=== PATIENT | male | born 1935 | race Caucasian/White ===

== ENCOUNTER 2018-01-08 08:52 | Day surgery (SDC) | payer OTHER ==
[~2018-01-08 08:52] MED LIST: ACETAMINOPHEN 325 MG TAB PO PRN; ASPIRIN EC 325 MG TAB PO ONE; DIAZEPAM 5 MG TAB PO ONE; FAMOTIDINE 20 MG TAB PO ONE; NITROGLYCERIN 0.4 MG BTL SL PRN; NS 1,000 ML IV SCH; TEMAZEPAM 15 MG CAP PO PRN; diphenhydrAMINE 25 MG CAP PO ONE
[2018-01-08] MEDS ORDERED: diphenhydrAMINE 25 MG CAP PO ONE (09:29)
[2018-01-08] MEDS ORDERED: FAMOTIDINE 20 MG TAB ONE (09:30)
[2018-01-08] MEDS ORDERED: DIAZEPAM 5 MG TAB ONE (09:30)
[2018-01-08] MEDS ORDERED: ASPIRIN EC 325 MG TAB PO ONE (09:30)
[2018-01-08 09:35] LABS: PLATELET COUNT 208 10^3/uL (150-400)
[2018-01-08 09:43] LABS: INR 0.94 (0.83-1.16); PROTIME(PATIENT) 12.8 SEC (12.0-15.0)
[2018-01-08] MEDS ORDERED: LIDOCAINE 1% 300 MG/30 ML SDV ONE (10:49)
[2018-01-08] MEDS ORDERED: fentaNYL 100 MCG/2 ML INJ ONE (10:50)
[2018-01-08] MEDS ORDERED: IOPAMIDOL (ISOVUE-370) 150 ML BTL IV ONE (10:50)
[2018-01-08] MEDS ORDERED: MIDAZOLAM 2 MG/2 ML VIAL ONE (10:50)
--- NOTE | 2018-01-08 10:53 | PDHPUP ---
History & Physical Update H&P update statement: This history and physical update is based on an assessment of the patient which was completed after admission or registration (within 24 hours), but prior to the surgery/procedure. H&P update: H&P reviewed & patient examined, no change in patient's condition since H&P completed
--- NOTE | 2018-01-08 10:54 | PDPROPOC ---
Sedation Plan of Care Sedation Plan of Care: vital signs stable, mental status noted, patient educated of risks, benefits, alternatives, patient can tolerate sedation ASA Classification: ASA 2 Planned drugs: fentanyl, midazolam Mallampati Score: Class 2 Mallampati Reference Image: Patient passed 3-3-2 rule?: Yes
--- NOTE | 2018-01-08 12:34 | CPEKG ---
Test Reason : OPEN Blood Pressure : / mmHG Vent. Rate : 068 BPM Atrial Rate : 066 BPM P-R Int : 173 ms QRS Dur : 113 ms QT Int : 435 ms P-R-T Axes : 065 047 040 degrees QTc Int : 463 ms Sinus rhythm Multiple ventricular premature complexes Low voltage, extremity leads More upright T waves in the precordial leads compared to December 12, 2009 Confirmed by Guilherme Arciniega ([id number]) on 01/08/2018 12:33:34 PM Referred By: Confirmed By:Guilherme Arciniega
[2018-01-08] MEDS ORDERED: ATROPINE SULFATE 1 MG/10 ML SYR IVP PRN (14:51)
[2018-01-08] MEDS ORDERED: ONDANSETRON 4 MG/2 ML VIAL IVP PRN (14:51)
[2018-01-08] MEDS ORDERED: HYDROCODONE/APAP 5/325 TAB PO PRN (14:51)
--- NOTE | 2018-01-08 16:15 | PDDXCAT ---
Diagnostic Cath Note - . 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 LAD: Diffuse moderate disease in the proximal to mid-LAD; focal 70-80% stenosis in the mid-LAD. Bifurcated 1st diagonal with high-grade ostial disease. LCX: Diffuse mild to moderate disease of the proximal to mid-circumflex. Principal OM with 50-60% disease involving a trifurcation. RCA: Diffuse moderate to severe disease from the proximal segment all the way distally to the posterolateral system. EDP: 15 mmHg LVEF: 50% Wall motion: No regional variation in contractility. - Findings-Right Heart Catheterization RA: 10 mmHg RV: 46/8 mmHg PA: 48/11/27 mmHg O2 sat 80.0% PAOP: 14 mmHg AO: 134/66/93 mmHg O2 sat 97.3% CO: 7.3 L/min CI: 3.14 L/min/sq mtr Complications: None Estimated blood loss: <50ml Closure method: Angioseal Assessment: 1) CAD as described above. 2) Borderline LV systolic function. 3) Mild pulmonary hypertension. Plan: He will be discussed at our weekly case conference. He does not have chest pain. Does his FROST represent an anginal equivalent? Does his recent nuclear stress test represent balanced ischemia? Does he warrant revascularization? If so, by what method?
[2018-01-09] MEDS ORDERED: ATORVASTATIN CALCIUM 40 MG TAB PO SCH (09:00)
== END 2018-01-08 17:12 | disposition home or self-care (01) ==
LOC: FCATH 08:52
PROVIDERS: ATTEND Internal Medicine Interventional Cardiology
DX: I25.10 Atherosclerotic heart disease of native coronary artery without angina pectoris (principal); I27.20 Pulmonary hypertension, unspecified; R94.39 Abnormal result of other cardiovascular function study; R06.02 Shortness of breath; I49.3 Ventricular premature depolarization; E11.9 Type 2 diabetes mellitus without complications; G47.33 Obstructive sleep apnea (adult) (pediatric); E78.5 Hyperlipidemia, unspecified; Z79.84 Long term (current) use of oral hypoglycemic drugs; Z86.73 Personal history of transient ischemic attack (TIA), and cerebral infarction without residual deficits; Z87.891 Personal history of nicotine dependence; Z87.442 Personal history of urinary calculi; Z82.49 Family history of ischemic heart disease and other diseases of the circulatory system; Z96.651 Presence of right artificial knee joint; Z66 Do not resuscitate
CPT/HCPCS: C1760; J1644; J2250; J3010; Q9967

== ENCOUNTER → 2018-01-24 | Outpatient (CLI) | payer OTHER | LOC: FIMAGING 07:22 | PROVIDERS: ATTEND Thoracic Surgery (Cardiothoracic Vascular Surgery) | DX: I25.10 Atherosclerotic heart disease of native coronary artery without angina pectoris (principal) ==

== ENCOUNTER 2018-01-25 09:48 | Inpatient (IN) | payer OTHER ==
[~2018-01-25 09:48] MED LIST changes: -ACETAMINOPHEN 325 MG TAB PO PRN; +AMINOCAPROIC ACID 5 GM/20 ML VIAL IV ONE; -ASPIRIN EC 325 MG TAB PO ONE; +CARDIOPLEGIC SOLUTION 1,052.8 ML PF ONE; -DIAZEPAM 5 MG TAB PO ONE; +DOBUTamine 500 MG in D5W 250 ML IV ONE; +DOBUTamine/DEXTROSE 250 ML IV ONE; -FAMOTIDINE 20 MG TAB PO ONE; +INSULIN REGULAR HUMAN 100 UNIT in NS 100 ML IV ONE; +MANNITOL 25% 12.5 GM/50 ML VIAL IVP ONE; -NITROGLYCERIN 0.4 MG BTL SL PRN; +NOREPINEPHRINE BITARTRATE 16 MG in NS 250 ML IV ONE; -NS 1,000 ML IV SCH; +PAPAVERINE HCL 60 MG in NS 100 ML IV ONE; +PHENYLEPHRINE HCL 50 MG in NS 250 ML IV ONE; -TEMAZEPAM 15 MG CAP PO PRN; +VERAPAMIL 5 MG, NITROGLYCERIN 2.5 MG, HEPARIN 500 UNIT, SODIUM BICARBONATE 0.2 MEQ in L... MISC ONE; -diphenhydrAMINE 25 MG CAP PO ONE
[2018-01-25] MEDS ORDERED: CALCIUM CHLORIDE 1 GM/10 ML INJ ONE ×3 (09:50→09:54)
[2018-01-25] MEDS ORDERED: NA BICARBONATE 50 MEQ/50 ML VIAL ONE (09:52)
[2018-01-25] MEDS ORDERED: PROTAMINE SULFATE 50 MG/5 ML VIAL IVP ONE (09:52)
[2018-01-25] MEDS ORDERED: HEPARIN 10,000 UNIT/10 ML MDV (1,000 UNIT/ML) ONE ×2 (09:52→09:54)
[2018-01-25] MEDS ORDERED: DOPamine/DEXTROSE 400 MG/250 ML BAG IV ONE (09:52)
[2018-01-25] MEDS ORDERED: MILRINONE/DEXTROSE/100 ML BAG IV ONE (09:52)
[2018-01-25] MEDS ORDERED: ALBUMIN 5% 250 ML BOTTLE IV ONE ×3 (09:53→23:44)
[2018-01-25] MEDS ORDERED: ceFAZolin 1 GM VIAL ONE (09:53)
[2018-01-25] MEDS ORDERED: AMIODARONE HCL 150 MG/3 ML VIAL ONE ×2 (09:53→09:54)
[2018-01-25] MEDS ORDERED: SODIUM BICARBONATE 50 MEQ/50 ML SYR ONE (09:53)
[2018-01-25] MEDS ORDERED: niCARdipine/NACL/200 ML BAG IV ONE (09:53)
[2018-01-25] MEDS ORDERED: ADENOSINE 6 MG/2 ML VIAL ONE (09:53)
[2018-01-25] MEDS ORDERED: NITROGLYCERIN/D5W 50 MG/250 ML BOTTLE IV ONE (09:53)
[2018-01-25] MEDS ORDERED: CITRATE DEXTROSE SOLN 500 ML BAG ONE (09:54)
[2018-01-25] MEDS ORDERED: MAGNESIUM SULFATE 1 GM/2 ML VIAL ONE (09:54)
[2018-01-25] MEDS ORDERED: LIDOCAINE 2% 100 MG/5 ML SYR ONE (09:54)
[2018-01-25] MEDS ORDERED: methylPREDNISolone SOD SUCC 1 GM/8 ML VIAL ONE (09:54)
[2018-01-25] MEDS ORDERED: NS 1,000 ML IV ONE (10:16)
[2018-01-25] MEDS ORDERED: CITRATE DEXTROSE SOLN 500 ML BAG MISC ONE (10:16)
[2018-01-25] MEDS ORDERED: LIDOCAINE 1% 2 ML INJ ID PRN (10:16)
[2018-01-25] MEDS ORDERED: CHLORHEXIDINE GLUC HIBICLENS 118 ML BTL TP SCH (10:16)
[2018-01-25] MEDS ORDERED: MUPIROCIN 2% 22 GM OINT NS ONE (10:16)
[2018-01-25] MEDS ORDERED: ceFAZolin 2 GM/DEXTROSE 100 ML IV ONE (10:16)
[2018-01-25] MEDS ORDERED: LR 1,000 ML IV ONE (10:16)
--- NOTE | 2018-01-25 10:48 | PDHPUP ---
History & Physical Update H&P update statement: This history and physical update is based on an assessment of the patient which was completed after admission or registration (within 24 hours), but prior to the surgery/procedure. H&P update: no change in patient's condition since H&P completed
[2018-01-25] MEDS ORDERED: MIDAZOLAM 2 MG/2 ML VIAL IVP ONE (11:25)
--- NOTE | 2018-01-25 11:25 | PDANEPAE ---
ANE History of Present Illness 82 yo cabg ANE Past Medical History - Cardiovascular History Hx Hypertension: Yes Hx Arrhythmias: No Hx Chest Pain: Yes Hx Coronary Artery / Peripheral Vascular Disease: Yes Hx CHF / Valvular Disease: No Hx Palpitations: No Cardiovascular History Comment: CAD. hx of sob. hx of cp. hypercholesterolemia. pvc's. followed by [facility] - Pulmonary History Hx COPD: No Hx Asthma/Reactive Airway Disease: No Hx Recent Upper Respiratory Infection: No Hx Oxygen in Use at Home: No Hx Sleep Apnea: No Sleep Apnea Screening Result - Last Documented: Positive Pulmonary History Comment: justina positive uses cpap - Neurologic History Hx Cerebrovascular Accident: Yes Hx Seizures: No Hx Dementia: No Neurologic History Comment: TIA- no residual effects 2016 - Endocrine History Hx Diabetes: Yes Endocrine History Comment: type 2 - Renal History Hx Renal Disorders: No - Liver History Hx Hepatic Disorders: No - Neurological & Psychiatric Hx Hx Neurological and Psychiatric Disorders: No - Cancer History Hx Cancer: Yes Cancer History Comment: basal cell. 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 hole in right ear. dry skin. oral appliance for TMJ - Chronic Pain History Chronic Pain: No - Surgical History Prior Surgeries: cath 01/08/18. right knee replacement. left hip replacement. ureterscopy with [facility] 12/13/09. 17 yrs ago numerous right ear surgeries ANE Review of Systems Review of Systems: - Exercise capacity METS (RN): 3 METS ANE Patient History - Allergies Allergies/Adverse Reactions: No Known Allergies Allergy (Verified 01/22/18 14:53) - Home Medications Home Medications: Carvedilol [Coreg (*)] 6.25 mg PO BIDMEAL 01/07/18 [Last Taken 01/24/18] Clopidogrel Bisulfate [Plavix (*)] 75 mg PO DAILY 01/07/18 [Last Taken 01/20/18] Gabapentin [Neurontin 300 MG (*)] 300 mg PO HS 01/07/18 [Last Taken 01/24/18] metFORMIN HCL [Glucophage 500 mg (*)] 500 mg PO BIDMEAL 01/07/18 [Last Taken 12/27] Herbals/Supplements -Info Only 1 ea PO DAILY 01/21/18 [Last Taken Unknown] Magnesium Oxide [Magnesium Oxide 400 mg (*)] 400 mg PO DAILY 01/21/18 [Last Taken 01/22/18] Multivitamins [Multivitamin (*)] 1 each PO DAILY 01/21/18 [Last Taken 01/22/18] - NPO status NPO Status: no food or drink >8 hours NPO Since - Liquids (Date): 01/24/18 NPO Since - Liquids (Time): 21:00 NPO Since - Solids (Date): 01/24/18 NPO Since - Solids (Time): 21:00 - Anes Hx Anes Hx: no prior problems - Smoking Hx Smoking Status: Former smoker - Family Anes Hx Family Hx Anesthesia Complications: none ANE Labs/Vital Signs - Vital Signs Blood Pressure: 165/77 Heart Rate: 63 Respiratory Rate: 20 O2 Sat (%): 95 Height: 6 ft 3 in Weight: 102.965 kg ANE Physical Exam - Airway Neck exam: FROM Mallampati Score: Class 2 Mouth exam: normal dental/mouth exam - Pulmonary Pulmonary: no respiratory distress - Cardiovascular Cardiovascular: regular rate and rhythym - ASA Status ASA Status: IV ANE Anesthesia Plan Anesthesia Plan: general endotracheal anesthesia Lines/Monitors: arterial line, central line, YAN
[2018-01-25] MEDS ORDERED: DEXMEDETOMIDINE HCL 400 MCG in NS 100 ML IV SCH (11:30)
[2018-01-25] MEDS ORDERED: MIDAZOLAM 2 MG/2 ML VIAL ONE (11:35)
[2018-01-25] MEDS ORDERED: REMIFENTANIL HCL 1 MG VIAL ONE (11:37)
[2018-01-25] MEDS ORDERED: fentaNYL 100 MCG/2 ML INJ ONE (11:37)
[2018-01-25] MEDS ORDERED: PROPOFOL/EMULSION 500 MG/50 ML BOTTLE IV ONE ×2 (11:38→14:20)
[2018-01-25] MEDS ORDERED: ROCURONIUM 100 MG/10 ML VIAL ONE (11:39)
[2018-01-25] MEDS ORDERED: HYDROmorphONE/DILAUDID 2 MG/ML INJ ONE (14:09)
--- NOTE | 2018-01-25 16:23 | POSTOPPROG ---
Post Op Note Date of Operation: 01/25/18 Surgeon: Jefry Magana Assistant: Guilherme Pan PAC Anesthesia: GET(General Endotracheal) Pre-op Diagnosis: CAD Post-op Diagnosis: same Procedure: CABGx3 (ABDUL-LAD, SVG-OM2, SVG-D1) Findings: coronary artery disease Inf/Abcess present in the surg proc area at time of surgery?: No Depth: Organ Space EBL: 100-500 Complications: none Drains: Other (Chest tubesx3 (1 right, 1 left, 1 mediastinal)) Specimen(s): none
[2018-01-25] MEDS ORDERED: MAGNESIUM HYDROXIDE 30 ML UDCUP PO PRN (16:28)
[2018-01-25] MEDS ORDERED: BISACODYL 10 MG SUPP PR PRN (16:28)
[2018-01-25] MEDS ORDERED: ONDANSETRON 4 MG/2 ML VIAL IVP PRN (16:28)
[2018-01-25] MEDS ORDERED: METOCLOPRAMIDE 10 MG/2 ML VIAL IVP PRN (16:28)
[2018-01-25] MEDS ORDERED: MEPERIDINE 25 MG/0.5 ML AMP IVP PRN (16:28)
[2018-01-25] MEDS ORDERED: CEPACOL LOZENGE PO PRN (16:28)
[2018-01-25] MEDS ORDERED: D50W 25 GM/50 ML SYR IVP PRN (16:28)
[2018-01-25] MEDS ORDERED: POTASSIUM Cl (KCl) 50 ML IV PRN (16:28)
[2018-01-25] MEDS ORDERED: ONDANSETRON DISINTEGRATING 4 MG TAB PO PRN (16:28)
[2018-01-25] MEDS ORDERED: POLYETHYLENE GLYCOL 3350 17 GM PKT PO PRN (16:28)
[2018-01-25] MEDS ORDERED: ACETAMINOPHEN 650 MG SUPP PR PRN (16:28)
[2018-01-25] MEDS ORDERED: PANTOPRAZOLE SODIUM 40 MG VIAL IVP ONE (16:28)
[2018-01-25] MEDS ORDERED: SODIUM CL NASAL 45 ML BTL EACHNARE PRN (16:28)
[2018-01-25] MEDS ORDERED: LACTULOSE 20 GM/30 ML UDCUP PO PRN (16:28)
[2018-01-25] MEDS ORDERED: ACETAMINOPHEN 325 MG TAB PO PRN (16:28)
[2018-01-25] MEDS ORDERED: niCARdipine/NACL 200 ML IV SCH (16:30)
[2018-01-25] MEDS ORDERED: INSULIN REGULAR HUMAN 100 UNIT in NS 100 ML IV SCH (16:30)
[2018-01-25] MEDS ORDERED: NS 1,000 ML IV SCH (16:30)
[2018-01-25 16:32] LABS: PLATELET COUNT 116 10^3/uL (150-400)
[2018-01-25 16:34] LABS: INR 1.4 (0.83-1.16); PROTIME(PATIENT) 17.3 SEC (12.0-15.0)
--- NOTE | 2018-01-25 16:36 | GOP ---
DATE OF OPERATION: 01/25/2018 SURGEON: Jefry Magana MD IMMIGRATION ATTORNEY: Guilherme Pan P.A.-C. PREOPERATIVE DIAGNOSIS: Coronary artery disease with unstable angina. POSTOPERATIVE DIAGNOSIS: Coronary artery disease with unstable angina. PROCEDURE PERFORMED: 1. Triple coronary artery bypass grafting. Summary of grafts: Left internal mammary artery to the left anterior descending, saphenous vein graft from aorta to D1, saphenous vein graft from aorta to M 2. 2. Endoscopic vein harvest from the right leg. FINDINGS: INDICATIONS: This 82-year-old gentleman has a history of unstable angina. He was woken from sleep t he other night with chest pain, and he underwent cardiac catheterization, which revealed high-grade p roximal LAD lesion, a high-grade proximal diagonal lesion. There was an approximately 60% lesion in the circumflex marginal and 60% to 70% lesion in the circumflex, marginal, and the right coronary art penny was diffusely and severely diseased but no obstructive lesions. The patient was recommended to [facility] surgical revascularization. DESCRIPTION OF PROCEDURE: Patient was taken to the operating room and placed on the operating table in supine position. After the induction of general anesthesia and single endotracheal tube intubatio n, patient was prepped and draped sterilely. A standard median sternotomy was performed. The patien t was fully heparinized. He was cannulated then with a size 8.0 soft-flow aortic cannula as well as a dual-stage venous right atrial cannula. Cardiopulmonary bypass was instituted. The distal vessels were marked for grafting. The cross-clamp was applied. The heart was arrested with 1 L of [place] solution. First, the 2nd marginal was dissected open. It was probed with a 1.5 mm vessel. It was anastomosed end-to-side to a vein graft using running 7-0 Prolene. Next, the diagonal was similarly opened. Thi s was also a smaller, approximately 1.5 mm vessel. It was anastomosed end-to-side to a separate vein graft using running 7-0 Prolene. Lastly, the LAD was opened in its distal 3rd. It was anastomosed end-to-side to the left mammary using running 7-0 Prolene. This was then allowed to flow freely. Th e cross-clamp was removed. The vein grafts were each individually anastomosed end-to-side to the asc ending aorta using running 6-0 Prolene. These were de-aired then allowed to flow freely. Left, righ t, and mediastinal chest tubes were placed as well as atrial and ventricular pacing wires. The patie nt was from bypass without difficulty and the post pump transesophageal echo shows no trejo e in wall motion. Left ventricular function was well preserved. Once the protamine had been adminis tered and the patient was decannulated, all the cannulation sites were doubly secured with Prolene cedeño ture. Next, the heart was covered with pericardium and fat. The chest was closed with #6 stainless steel w ires. Subcutaneous tissue and skin were closed with running Vicryl suture. The patient tolerated th e procedure well. /[id number]/MODL
[2018-01-25] MEDS: ALBUMIN 5% 250 ML IV PRN ×2 (17:50→18:34)
[2018-01-25] MEDS: ceFAZolin 2 GM/DEXTROSE 100 ML IV SCH (19:58)
[2018-01-25] MEDS: MUPIROCIN 2% 22 GM OINT NS SCH (20:03)
[2018-01-25] MEDS: CHLORHEXIDINE GLUCONATE 15 ML UDL PO SCH (20:03)
[2018-01-25] MEDS ORDERED: FAMOTIDINE 20 MG/NACL 50 ML IV SCH (21:00)
[2018-01-25] MEDS: fentaNYL 100 MCG/2 ML INJ IVP PRN (23:51)
[2018-01-26] MEDS: fentaNYL 100 MCG/2 ML INJ IVP PRN ×2 (03:12→04:40)
[2018-01-26] MEDS: ceFAZolin 2 GM/DEXTROSE 100 ML IV SCH ×3 (03:12→19:16)
[2018-01-26] MEDS ORDERED: ALBUMIN 5% 250 ML IV ONE (05:30)
[2018-01-26 06:03] LABS: PLATELET COUNT 131 10^3/uL (150-400)
--- NOTE | 2018-01-26 06:16 | CPEKG ---
Test Reason : OPEN Blood Pressure : / mmHG Vent. Rate : 073 BPM Atrial Rate : 074 BPM P-R Int : 179 ms QRS Dur : 115 ms QT Int : 432 ms P-R-T Axes : 075 057 036 degrees QTc Int : 476 ms Sinus rhythm Nonspecific intraventricular conduction delay Low voltage, extremity leads Nonspecific T abnormalities, anterior leads Confirmed by Gideon Ortega ([id number]) on 01/26/2018 6:15:32 AM Referred By: Confirmed By:Gideon Ortega
[2018-01-26] MEDS: HYDROCODONE/APAP 5/325 TAB PO PRN ×4 (06:23→20:28)
--- NOTE | 2018-01-26 07:10 | SOAPPROG ---
SOAP Progress Note Assessment/Plan: POD#1 s/p CABGx3 CAD s/p CABG - required colloid (x3 albumin, 1 pRBC) supplementation for BP support. Hypovolemia d/t high chest tube output. NSR. Home coreg/atorvastatin. ASA. Post-op coagulopathy - responded to platelets and FFP. CT output trending down but too much to pull. Likely d/t chicken vaccinator Plavix therapy. Acute blood loss anemia - expected, transfused 1 pRBCs, 1 plt, 1 FFP. History of TIA - on chronic plavix therapy. Restart when appropriate. T2DM - insulin gtt, plan for ISS. A1c 7.0% 07/27 Dispo D/c art line, champion Keep CT Wrap and cap A/V wires Home Coreg 6.25 mg PO BID, will start at 3.125 mg PO BID Transfer to PCU Subjective: No complaints. Objective: Vital Signs Temp Pulse Resp BP Pulse Ox 36.5 C 78 20 125/52 H 95 01/26/18 04:00 01/26/18 06:00 01/26/18 06:00 01/26/18 06:00 01/26/18 06:00 Laboratory Results 01/26/18 05:50 01/26/18 05:50 01/25/18 01/26/18 01/27/18 05:59 05:59 05:59 Intake Total 2007 Output Total 2024 325 Balance -17 -325 PT 17.3 SEC (12.0-15.0) H 01/25/18 15:57 INR 1.40 (0.83-1.16) H 01/25/18 15:57 General: NAD, sitting upright HEENT: CVL IJ, MMM Respiratory: no wheezes, crackles Cardiac: +pericardial rub, NSR, no m/g, no edema GI: soft, nt, nd : champion Incisions: sternum/right thigh - CDI Chest tubes: 300/700 (8 hours) dark red, small airleak d/t adhesions (right pleural) in OR DVT prophylaxis: SCDs Arterial Line: y, out today Champion: y, out today CVC: yes, need for ongoing management, labs Chest Tubes: y, need for ongoing o/p Pacing Wires: A/V, NSR Beta Payton: y, home coreg Statin: home statin, plan to restart later Aspirin: y ACEI/ARB: n Coumadin: n ICD10 Worksheet Patient Problems: Problems Problem Status Onset Acute blood loss anemia Acute Coronary artery disease Acute History of TIA (transient ischemic attack) Acute S/P CABG x 3 Acute Type 2 diabetes mellitus Acute
--- NOTE | 2018-01-26 07:34 | PDMN ---
Medical Necessity Medical necessity: [facility] S390 CABG- 4 days INPT only OP: CABG X 3 AUTH # [id number] FOR CPT 55085. DONE IN PT.
[2018-01-26] MEDS ORDERED: D50W 25 GM/50 ML SYR IVP PRN (08:41)
[2018-01-26] MEDS ORDERED: traMADol 50 MG TAB PO PRN (08:42)
[2018-01-26] MEDS: MUPIROCIN 2% 22 GM OINT NS SCH ×2 (09:00→20:15)
--- NOTE | 2018-01-26 09:09 | ASMTCMCOM ---
CM Note CM Note Notes: 82yo male admitted for CAD, EF=50%. He has a Hx of TIA-no residuals, [place], DM. Patient had a CABG x 3. He lives with his in [place]. Therapies to eval. May not have discharge needs. Date Signed: 01/26/2018 09:08 AM Electronically Signed By:Manjula Caballero LCSW
[2018-01-26] MEDS: CARVEDILOL 3.125 MG TAB PO SCH ×2 (10:24→17:28)
[2018-01-26] MEDS: CHLORHEXIDINE GLUCONATE 15 ML UDL PO SCH ×2 (10:24→20:15)
[2018-01-26] MEDS: FAMOTIDINE 20 MG TAB PO SCH ×2 (10:25→20:14)
--- NOTE | 2018-01-26 10:31 | GCON ---
GRAPHIC USER INTERFACE DESIGNER CONSULTATION REASON FOR ADMISSION: Patient examined postoperatively after receiving coronary bypass graft. HISTORY OF PRESENT ILLNESS: The patient is an 82-year-old white male with extensive past medical his tory, including TIAs, obstructive sleep apnea, hypercholesterolemia, diabetes, and basal cell carcino ma. Again, he is examined postoperatively after receiving a 3-vessel bypass. In discussion with the patient, he states overall he is doing quite well. His pain is well-tolerated. He currently ranks it at a 2/4. He denies any shortness of breath, though he does admit to having difficulty using his own incentive spirometry. He denies any cough or production of sputum. There is no fever or night s weats. Currently, he is resting comfortably. PAST MEDICAL HISTORY: As above. PAST SURGICAL HISTORY: He has had a TURP, tonsillectomy, lumbar disk surgery, knee replacement, carp al tunnel repair, appendectomy. FAMILY HISTORY: Noncontributory. ALLERGIES: None known to medications. SOCIAL HISTORY: Previous smoker, none for 25 years. No significant alcohol use. 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 He is , with children. He has lived in [place] for m any years. REVIEW OF SYSTEMS: Ten-point review of systems was performed and negative, except for what is listed in the HPI. PHYSICAL EXAM: VITAL SIGNS: Blood pressure is 109/47, pulse 81, respirations 18, temperature 36.5, oxygen saturation 91% on room air. GENERAL: He is a well-developed, elderly white male who is resti ng comfortably, in no acute distress. HEENT: Eyes PERRL, EOMI. Throat shows no erythema or tonsill ar hypertrophy. NECK: Supple. There is no cervical adenopathy. HEART: Regular rate and rhythm, w ith a 2/6 systolic murmur at the left sternal border without radiation. LUNGS: Diminished breath so unds. Mild prolongation expiratory phase, but there is no wheeze. ABDOMEN: Soft, nontender. Bowel sounds are present in all 4 quadrants. EXTREMITIES: No clubbing, cyanosis, or edema. LABORATORIES: White count is 10. Hemoglobin , hematocrit 30. Platelet count is 131. Sod ium 140, potassium 4.5, chloride 104. CO2 is 21. BUN is 18, creatinine 0.7. Glucose is 98. Chest x-ray reviewed by me, reveals lines in good position. There are small pleural effusions present, oth erwise clear. IMPRESSION: 1. Coronary artery disease. 2. Status post coronary artery bypass graft. 3. Anemia. 4. History of transient ischemic attack. 5. Diabetes. Blood sugar in good control. RECOMMENDATIONS: 1. Continue adequate pain control. 2. Encourage incentive spirometry. 3. Aggressive blood sugar control. 4. DVT and PE prophylaxis, holding anticoagulation for now. 5. Stress ulcer prophylaxis. 6. Patient is stable for transfer to PCU. /[id number]/MODL
[2018-01-26] MEDS: INSULIN LISPRO 100 UNIT/ML SC SCH ×2 (12:36→17:27)
[2018-01-26] MEDS ORDERED: PANTOPRAZOLE SODIUM 40 MG TAB PO SCH (16:28)
[2018-01-26] MEDS ORDERED: ASPIRIN 81 MG CHEWABLE TAB TUBE PRN (16:28)
[2018-01-26] MEDS: ASPIRIN 81 MG CHEWABLE TAB PO SCH (17:28)
[2018-01-26] MEDS: SENNOSIDES/DOCUSATE SODIUM TAB PO SCH (20:13)
[2018-01-27] MEDS: ceFAZolin 2 GM/DEXTROSE 100 ML IV SCH (04:50)
[2018-01-27 05:36] LABS: PLATELET COUNT 139 10^3/uL (150-400)
[2018-01-27] MEDS: ASPIRIN 81 MG CHEWABLE TAB PO SCH (08:01)
[2018-01-27] MEDS: CARVEDILOL 3.125 MG TAB PO SCH (08:02)
[2018-01-27] MEDS: SENNOSIDES/DOCUSATE SODIUM TAB PO SCH (08:03)
[2018-01-27] MEDS: INSULIN LISPRO 100 UNIT/ML SC SCH ×3 (08:03→18:25)
[2018-01-27] MEDS: FAMOTIDINE 20 MG TAB PO SCH ×2 (08:03→20:05)
[2018-01-27] MEDS: MUPIROCIN 2% 22 GM OINT NS SCH (08:04)
[2018-01-27] MEDS ORDERED: ATORVASTATIN CALCIUM 40 MG TAB PO SCH (09:00)
[2018-01-27] MEDS ORDERED: CARVEDILOL 3.125 MG TAB PO ONE (09:14)
--- NOTE | 2018-01-27 09:26 | SOAPPROG ---
SOAP Progress Note Assessment/Plan: POD#2 s/p CABGx3 CAD s/p CABG - required colloid (x3 albumin, 1 pRBC) supplementation for BP support in the ICU. No inotropes or vasopressors. Hypovolemia d/t high chest tube output 2/2 chronic plavix therapy. NSR. Home coreg/atorvastatin/ASA. ST elevation noted in comparison to baseline POD#0, asx. Post-op coagulopathy - responded to platelets and FFP. CT output trending down but still dark blood. Right chest tube out. Acute blood loss anemia - expected, transfused 1 pRBCs, 1 plt, 1 FFP. History of TIA - on chronic plavix therapy. Restart when chest tubes out. T2DM - ISS. A1c 7.0% 07/27. Intake poor. Metformin 500 mg PO BID at home when PO improves Hypervolemia - feels water weight, net zero 24 hours however up 3 kg since admission (+10 lbs per the patient) GI ppx - pepcid Dispo Poss removal chest tubes later today A/V wires out tomorrow POD#3 Inc to home Coreg 6.25 mg PO BID Home gabapentin order as sleep aid/neuropathy Poss dc ISS and change to metformin if increased PO intake Ambulate/PTOT Lasix 20 mg c KCl for hypervolemia Subjective: Doing well. Feels the extra water weight with breathing and in his LE. ST elevation noted telemetry and compared to baseline EKG. No chest pain or discomfort. Objective: Vital Signs Temp Pulse Resp BP Pulse Ox 36.7 C 97 12 120/69 96 01/27/18 07:07 01/27/18 08:02 01/27/18 07:07 01/27/18 08:02 01/27/18 07:07 Laboratory Results 01/27/18 05:00 01/27/18 05:00 01/26/18 01/27/18 01/28/18 05:59 05:59 05:59 Intake Total 2007 1200 Output Total 2024 1240 Balance -17 -40 PT 17.3 SEC (12.0-15.0) H 01/25/18 15:57 INR 1.40 (0.83-1.16) H 01/25/18 15:57 General: NAD, sitting upright HEENT: CVL IJ, MMM Respiratory: no wheezes, crackles Cardiac: +pericardial rub, NSR, no m/g, 1+ edema GI: soft, nt, nd : champion Incisions: sternum/right thigh - CDI Chest tubes: mediastinal & left pleural - 30/150 & 65/20 (8 hours) dark red Tele: mild ST elevation ICD10 Worksheet Patient Problems: Problems Problem Status Onset Acute blood loss anemia Acute Coronary artery disease Acute History of TIA (transient ischemic attack) Acute S/P CABG x 3 Acute Type 2 diabetes mellitus Acute
[2018-01-27] MEDS: FUROSEMIDE 20 MG TAB PO SCH (10:08)
[2018-01-27] MEDS: POTASSIUM CL 10 MEQ TAB PO SCH (10:08)
[2018-01-27] MEDS ORDERED: METOPROLOL TARTRATE 5 MG/5 ML INJ IVP ONE (11:39)
--- NOTE | 2018-01-27 11:50 | ASMTCMCOM ---
CM Note CM Note Notes: CM reviewed pts therapy notes and they are recommending home without any needs. CM available for changes. Plan: Independent Date Signed: 01/27/2018 11:50 AM Electronically Signed By:DESIRE Craig
[2018-01-27] MEDS ORDERED: FUROSEMIDE 40 MG/4 ML VIAL IVP ONE (15:00)
[2018-01-27] MEDS ORDERED: POTASSIUM CL 20 MEQ TAB PO ONE (15:00)
[2018-01-27] MEDS ORDERED: CARVEDILOL 6.25 MG TAB PO SCH (18:00)
[2018-01-27] MEDS ORDERED: GABAPENTIN 300 MG CAP PO SCH ×2 (21:00)
[2018-01-27] MEDS ORDERED: SENNOSIDES/DOCUSATE SODIUM TAB PO PRN (21:00)
[2018-01-28] MEDS: INSULIN LISPRO 100 UNIT/ML SC SCH (07:10)
[2018-01-28] MEDS: CARVEDILOL 6.25 MG TAB PO SCH ×2 (07:47→17:14)
[2018-01-28] MEDS: FAMOTIDINE 20 MG TAB PO SCH (07:47)
[2018-01-28] MEDS: POTASSIUM CL 10 MEQ TAB PO SCH (07:47)
[2018-01-28] MEDS: ASPIRIN 81 MG CHEWABLE TAB PO SCH (07:48)
[2018-01-28] MEDS: FUROSEMIDE 20 MG TAB PO SCH (07:48)
[2018-01-28] MEDS ORDERED: ATORVASTATIN CALCIUM 40 MG TAB PO SCH (09:00)
[2018-01-28] MEDS ORDERED: POTASSIUM CL 10 MEQ TAB PO ONE (09:00)
[2018-01-28] MEDS ORDERED: MULTIVITAMINS 1 EACH TAB PO SCH (09:00)
[2018-01-28] MEDS ORDERED: MAGNESIUM OXIDE 400 MG TAB PO SCH (09:00)
[2018-01-28 11:00] VITALS: BP 110/61
[2018-01-28] MEDS ORDERED: POTASSIUM CL 20 MEQ TAB PO ONE (13:04)
--- NOTE | 2018-01-28 13:19 | PDDCSUM ---
Discharge Summary Discharge Summary: DATE OF ADMISSION: 01/25/18 DATE OF DISCHARGE: 01/28/18 DISPOSITION: Home with oxygen ACTIVITY: Instructed on sternal precautions, activity restrictions, and problems to call [facility]. ADMISSION DIAGNOSES: Severe coronary artery disease T2DM History of TIA on Plavix History of PVCs High cholesterol LVEF 50% Mild pulmonary hypertension DISCHARGE DIAGNOSES: As above plus, Acute blood loss anemia History of blood transfusion Respiratory insufficiency PROCEDURE PERFORMED: 01/25/18 ([facility]) CABGx3 (ABDUL-LAD, SVG-D1, SVG-M2) HISTORY OF PRESENT ILLNESS: This is an 82M with unstable angina who was woken from sleep with chest pain. LHC demonstrated high-grade LAD, diagonal, and circumflex disease. RCA was diseased but nonobstructive. HOSPITAL COURSE BY PROBLEM LIST: CAD s/p CABG - required colloid (x3 albumin, 1 pRBC) supplementation for BP support in the ICU. No inotropes or vasopressors. Hypovolemia d/t high chest tube output 2/2 chronic plavix therapy. +pericardial rub with minor ST elevation post-op - asymptomatic. NSR throughout hospitalization. Coreg restarted and titrated to home dose. Secondary prevention with atorvastatin and ASA. Acute blood loss anemia with post-op coagulopathy - transfused 1 pRBCs, 1 plt, 1 FFP. History of TIA - on chronic plavix therapy. Restarted the day of discharge. T2DM - Last A1c 7.0% in July 2017. BS stable throughout hospitalization on insulin gtt and ISS. Metformin 500 mg PO BID at home. Hypervolemia - symptomatic, lasix was started in the hospital and responded appropriately. PERTINENT DISCHARGE CLINICAL INFORMATION: Sternotomy stable, CDI EVH Site, CDI HR 99 BP 110/61 SpO2 92% 2 L pre-op wt 102.9 kg discharge wt 103.4 WBC 13 Hgb 10.8 Hct 32.5 Plt 139 Na 139 K 3.7 Cr 0.9 CONSULTANTS: [facility] MEDICATIONS ON ADMISSION: Metformin 500 mg PO BID Gabapentin 300 mg PO HS Plavix 75 mg PO daily Coreg 6.25 mg PO BID Atorvastatin 40 mg PO daily Multivitamin Mag Oxide Herbal Supplement ALLERGIES/SENSITIVITIES: NKDA DISCHARGE MEDICATIONS: CONTINUE these medications: Metformin 500 mg PO BID Gabapentin 300 mg PO HS Plavix 75 mg PO daily Coreg 6.25 mg PO BID Atorvastatin 40 mg PO daily Multivitamin Mag Oxide Herbal Supplement NEW medications: Aspirin 81 mg PO daily Tramadol 50-100 mg PO q 4 hours PRN pain #30 tabs Lasix 20 mg PO daily/Klor-Con 10 mEq PO daily Tylenol PRN FOLLOW UP APPOINTMENTS: 1. CV surgery: [facility] on 02/10/17@ 10:30 am. 2. Cardiology: with Dr. Eldridge at [facility] within 4-6 weeks. Appointment to be established during surgical visit. FOLLOW UP TESTING: CXR prior to surgical appointment.
--- NOTE | 2018-01-28 15:37 | PDHOMEO2F ---
Home Oxygen Face to Face Home Orders: I certify that a physician or a nurse practitioner or physician's medical assistant float has had a [id number] encounter with this patient on the date of this order due to the diagnosis listed, which relates to the primary reason the patient requires home oxygen. Alternative treatments have been tried, or considered, and deemed ineffective. It is anticipated that supplemental oxygen will result in improvement with treatment. Home oxygen qualifying diagnosis: Coronary artery disease SpO2 on room air (%): 85% Frequency of home oxygen needed: continuous Home oxygen liters per minute: 1-2 LPM Home oxygen delivery device: nasal cannula Concentrator: Yes E-tanks for mobility and back up: Yes If ordering portable O2, is the patient mobile in the home?: Yes I certify that, based on these findings, the home oxygen is medically necessary for this patient for the following length of time. Length of time home oxygen needed: 1 month
--- NOTE | 2018-01-28 17:12 | SOAPPROG ---
SOAP Progress Note Assessment/Plan: POD#3 s/p CABGx3 CAD s/p CABG - required colloid (x3 albumin, 1 pRBC) supplementation for BP support in the ICU. No inotropes or vasopressors. Hypovolemia d/t high chest tube output 2/2 chronic plavix therapy. NSR. Home coreg/atorvastatin/ASA. ST elevation noted in comparison to baseline POD#0, asx. Post-op coagulopathy - responded to platelets and FFP. CT out. Acute blood loss anemia - expected, transfused 1 pRBCs, 1 plt, 1 FFP. History of TIA - on chronic plavix therapy. T2DM - A1c 7.0% /18. Intake poor. Metformin 500 mg PO BID Hypervolemia - lasix GI ppx - pepcid Dispo A/V wires out Coreg 6.25 mg PO BID Change to metformin Ambulate/PTOT Restart plavix Discharge today Subjective: Wants to go home Objective: Vital Signs Temp Pulse Resp BP Pulse Ox 36.9 C 99 25 H 110/61 86 L 01/28/18 10:59 01/28/18 14:10 01/28/18 14:10 01/28/18 10:59 01/28/18 14:10 Laboratory Results 01/27/18 05:00 01/28/18 12:10 01/27/18 01/28/18 01/29/18 05:59 05:59 05:59 Intake Total 1200 990 Output Total 1240 2260 250 Balance -40 -1270 -250 PT 17.3 SEC (12.0-15.0) H 01/25/18 15:57 INR 1.40 (0.83-1.16) H 01/25/18 15:57 General: NAD, sitting upright HEENT: CVL IJ, MMM Respiratory: no wheezes, crackles Cardiac: +pericardial rub, NSR, no m/g, 1+ edema worse in right GI: soft, nt, nd Incisions: sternum/right thigh - CDI ICD10 Worksheet Patient Problems: Problems Problem Status Onset Acute blood loss anemia Acute Coronary artery disease Acute History of TIA (transient ischemic attack) Acute S/P CABG x 3 Acute Type 2 diabetes mellitus Acute
[2018-01-28] MEDS ORDERED: metFORMIN HCL 500 MG TAB PO SCH (18:00)
[2018-01-29] MEDS ORDERED: CLOPIDOGREL BISULFATE 75 MG TAB PO SCH (09:00)
--- NOTE | 2018-01-29 18:49 | POSTANESTH ---
Post Anesthetic Evaluation Cardiovascular Status: Normal, Stable Respiratory Status: Normal, Stable Level of Consciousness/Mental Status: Can Participate in Eval Pain Control: Adequate, Prn Tx Ordered Nausea/Vomiting Control: Adequate, Prn Tx Ordered Complications Possibly Related to Anesthesia: None Noted
== END 2018-01-28 17:45 | disposition home or self-care (01) | DRG 236 ==
LOC: F2W 09:48 → F2N 14:10 → F2W 01-26 20:30
PROVIDERS: ADMIT Thoracic Surgery (Cardiothoracic Vascular Surgery); ATTEND Thoracic Surgery (Cardiothoracic Vascular Surgery)
PROC: 021109W Bypass Coronary Artery, Two Arteries from Aorta with Autologous Venous Tissue, Open Approach (ICD-10-PCS; principal; 2018-01-25 11:40)
PROC: 06BP4ZZ Excision of Right Saphenous Vein, Percutaneous Endoscopic Approach (ICD-10-PCS; principal; 2018-01-25 11:40)
PROC: 02100Z9 Bypass Coronary Artery, One Artery from Left Internal Mammary, Open Approach (ICD-10-PCS; principal; 2018-01-25 11:40)
PROC: 5A1221Z Performance of Cardiac Output, Continuous (ICD-10-PCS; principal; 2018-01-25 11:40)
PROC: 30233N1 Transfusion of Nonautologous Red Blood Cells into Peripheral Vein, Percutaneous Approach (ICD-10-PCS; 2018-01-25 11:40)
PROC: 30233R1 Transfusion of Nonautologous Platelets into Peripheral Vein, Percutaneous Approach (ICD-10-PCS; 2018-01-25 11:40)
DX: I25.110 Atherosclerotic heart disease of native coronary artery with unstable angina pectoris (principal); D62 Acute posthemorrhagic anemia; E87.70 Fluid overload, unspecified; R06.89 Other abnormalities of breathing; E11.9 Type 2 diabetes mellitus without complications; E78.00 Pure hypercholesterolemia, unspecified; I27.20 Pulmonary hypertension, unspecified; I10 Essential (primary) hypertension; G47.33 Obstructive sleep apnea (adult) (pediatric); Z86.73 Personal history of transient ischemic attack (TIA), and cerebral infarction without residual deficits; Z79.84 Long term (current) use of oral hypoglycemic drugs; Z79.01 Long term (current) use of anticoagulants; Z96.651 Presence of right artificial knee joint; Z96.642 Presence of left artificial hip joint
CPT/HCPCS: 82435-PO; 82565-PO; 82947-PO; 83605-PO; 84132-PO; 84295-PO; 84520-PO; 85014-PO; 92610-GN; 97116-GP; 97161-GP; 97165-GO; 97530-GO; 97530-GP; 97535-GO; C1768; G8978-GP-CK; G8979-GP-CI; G8987-GO-CK; G8988-GO-CI; G8996-GN-CH; G8997-GN-CH; G8998-GN-CH; J0153; J0282; J0690; J1170; J1250; J1265; J1644; J1815; J1940; J2001; J2150; J2250; J2260; J2270; J2370; J2440; J2704; J2720; J2930; J3010; J3475; J3480; P9016; P9017; P9041; P9073

== ENCOUNTER → 2018-02-10 | Outpatient (CLI) | payer OTHER | LOC: FIMAGING 09:38 | PROVIDERS: ATTEND Thoracic Surgery (Cardiothoracic Vascular Surgery) | DX: Z95.1 Presence of aortocoronary bypass graft (principal) ==